=== PATIENT | female | born 1975 | race Hispanic/Latino ===

== ENCOUNTER 2021-05-19 14:20 | Emergency (ER) | payer OTHER ==
[~2021-05-19] VITALS: Ht 157.5 cm; Wt 79.4 kg
[2021-05-19 14:22] VITALS: BP 125/46
[2021-05-19] MEDS ORDERED: DEXA4TAB PO (14:41)
[2021-05-19] MEDS ORDERED: HYDROCODONE/ACETAMINOPHEN 10/325 MG TAB ONE (14:45)
[2021-05-19] MEDS ORDERED: DEXAMETHASONE 4 MG TAB ONE (14:45)
[2021-05-19] MEDS ORDERED: DEXAMETHASONE 4 MG TAB PO SCH (16:00)
[2021-05-19] MEDS ORDERED: HYDROCODONE/ACETAMINOPHEN 10/325 MG TAB PO ONE (16:00)
== END 2021-05-19 14:59 | disposition home or self-care (01) ==
LOC: EDH 14:20
DX: M77.11 Lateral epicondylitis, right elbow (principal); Z79.52 Long term (current) use of systemic steroids
CPT/HCPCS: 99283; J8540